=== PATIENT | male | born 1960 | race Caucasian/White ===

== ENCOUNTER 2018-11-18 10:21 | Inpatient (IN) | payer OTHER ==
[~2018-11-18] VITALS: Ht 170.2 cm; Wt 95.3 kg
[2018-11-18] VITALS (21 sets, daily range): BP systolic 114–161; BP diastolic 65–84; PULSE 86–123; RESP 12–23; Ht 170.2 cm; Wt 95.3 kg
[~2018-11-18 10:21] MED LIST: PHENYLephrine (100 MCG/ML) 10ML SYG ONE; SEVOFLURANE 15 MIN ONE
[2018-11-18] MEDS ORDERED: AMLO-147 PO (10:47)
[2018-11-18] MEDS ORDERED: LISI-313 PO (10:48)
[2018-11-18] MEDS ORDERED: CYCL10TA7 PO (10:50)
[2018-11-18] MEDS ORDERED: morphine SULFATE/PF (10 MG/10 ML) INJ ONE (11:52)
[2018-11-18] MEDS ORDERED: PROPOFOL 20 ML ONE (11:52)
[2018-11-18] MEDS ORDERED: CEFAZOLIN 1 GM INJ ONE (11:52)
[2018-11-18] MEDS ORDERED: MIDAZOLAM 1 MG/ML 2 ML INJ ONE (11:52)
[2018-11-18] MEDS ORDERED: ROCURONIUM 50 MG INJ ONE ×2 (11:52→14:03)
--- NOTE | 2018-11-18 11:52 | PREAC ---
Date/Time of Note Date/Time of Note DATE: 11/18/18 TIME: 11:50 Anesthesia Eval and Record Evaluation Time Pre-Procedure Interview DATE: 11/18/18 TIME: 11:50 Age 58 Sex male NPO: 8 hrs Preoperative diagnosis Bilateral Hip OA Planned procedure Right Total Hip Arthroplasty Past Medical History Past Medical History: Includes Cardio: HTN Musculoskeletal: Osteoarthritis GI: Obesity Surgery & Anesthesia Issues No known issue Meds Anticoagulation: No Beta Steve within 24 hr: No Reason Beta Steve not given: Pt. not on B-Steve Reported Medications Cyclobenzaprine Hcl* (Cyclobenzaprine Hcl*) 10 Mg Tablet, 10 MG PO BID PRN for MUSCLE SPASMS, #60 TAB 11/18/18 Lisinopril* (Lisinopril*) 5 Mg Tablet, 5 MG PO DAILY, #30 TAB 11/18/18 Amlodipine Besylate* (Amlodipine Besylate*) 10 Mg Tablet, 10 MG PO DAILY, #30 TAB 11/18/18 Meds reviewed: Yes Allergies Coded Allergies: No Known Allergy (Unverified , 11/18/18) Allergies Reviewed: Yes Labs/Studies Labs Reviewed: Reviewed by anesthesiologist test: N/A Studies: ECG (n/a), CXR (n/a) Pre-procedure Exam Last vitals Vital Signs Date Temp Pulse Resp B/P (MAP) Pulse Ox O2 O2 Flow FiO2 Time Delivery Rate 11/18/18 98.1 123 16 154/78 99 10:30 (103) Airway: Adequate mouth opening, Adequate thyromental dist Mallampati: Mallampati II Teeth: Normal Lung: Normal Heart: Normal ASA Physical Status ASA physical status: 2 Emergency: None Planned Anesthetic General/MAC: ETT, LMA Neuraxial: Spinal Nerve block: Other (Right Fascia Iliaca Block) Planned Pain Management Sub-arachniod narcotics, Single shot nerve block, Parenteral pain med Pre-operative Attestations Prior to commencing anesthesia and surgery, the patient was re-evaluated, there was verification of: *The patient's identity *The results of appropriate recent lab work and preoperative vital signs *The above evaluation not changing prior to induction *Anesthetic plan, risk benefits, alternative and complications discussed with patient/family; questions answered; patient/family understands, accepts and wishes to proceed. MRAK MOJICA MD Nov 18, 2018 11:52
[2018-11-18] MEDS ORDERED: ROPIVACAINE 0.2% 20 ML VIAL ONE (12:04)
[2018-11-18] MEDS ORDERED: POLYMYXIN B 500000 UNIT INJ ONE (12:10)
[2018-11-18] MEDS ORDERED: POLYMYXIN/BACITRACIN 1L IRRIG ONE (12:10)
[2018-11-18] MEDS ORDERED: BACITRACIN 50000 UNITS INJ ONE (13:30)
[2018-11-18] MEDS ORDERED: ONDANSETRON 4 MG INJ ONE (14:03)
[2018-11-18] MEDS ORDERED: KETOROLAC 30 MG INJ ONE (14:03)
[2018-11-18] MEDS ORDERED: DEXAMETHASONE 4 MG/ML 5 ML INJ ONE (14:03)
[2018-11-18] MEDS ORDERED: TRANEXAMIC ACID 1GM/100ML(PMX) 100 ML ONE (14:03)
[2018-11-18] MEDS ORDERED: METOCLOPRAMIDE 10 MG INJ ONE (14:03)
[2018-11-18] MEDS ORDERED: SUGAMMADEX SODIUM 200 MG/2 ML VIAL IV ONE (14:07)
[2018-11-18] MEDS ORDERED: EPHEDrine SULFATE 50 MG/5 ML SYG IV PRN (14:30)
[2018-11-18] MEDS ORDERED: METOCLOPRAMIDE 10 MG INJ IV PRN (14:30)
[2018-11-18] MEDS ORDERED: morphine 2 MG INJ IV PRN ×2 (14:30)
[2018-11-18] MEDS ORDERED: ACETAMINOPHEN 500 MG TAB PO PRN (14:30)
[2018-11-18] MEDS ORDERED: HYDROCODONE/APAP (5/325) TAB PO PRN (14:30)
[2018-11-18] MEDS ORDERED: HYDROmorphONE 1 MG/5 ML IV SYRINGE IV PRN ×3 (14:30)
[2018-11-18] MEDS ORDERED: MEPERIDINE 25 MG INJ IV PRN (14:30)
[2018-11-18] MEDS ORDERED: NALBUPHINE HCL (10 MG/1 ML) INJ IV PRN (14:30)
[2018-11-18] MEDS ORDERED: DIPHENHYDRAMINE 50 MG INJ IV PRN ×2 (14:30)
[2018-11-18] MEDS ORDERED: hydrALAzine 20 MG INJ IV PRN (14:30)
[2018-11-18] MEDS ORDERED: NALOXONE (0.4 MG/ML) INJ IV PRN ×2 (14:30→15:00)
[2018-11-18] MEDS ORDERED: LABETALOL HCL 20MG INJ IV PRN (14:30)
[2018-11-18] MEDS ORDERED: OXYCODONE/ACETAMINOPHEN (5/325) TAB PO PRN ×2 (14:30)
[2018-11-18] MEDS ORDERED: HYDROmorphONE 0.5 MG/0.5 ML SYG IV PRN ×2 (14:30)
[2018-11-18] MEDS ORDERED: FENTAnyl 50 MCG/ML VIAL IV PRN ×3 (14:30)
[2018-11-18] MEDS ORDERED: ONDANSETRON 4 MG INJ IV PRN ×2 (14:30)
--- NOTE | 2018-11-18 14:50 | OPR ---
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
[2018-11-18] MEDS ORDERED: SENNA/DOCUSATE NA (8.6MG/50MG) TAB PO PRN (15:00)
[2018-11-18] MEDS ORDERED: BISACODYL 10 MG SUPP PR PRN (15:00)
[2018-11-18] MEDS ORDERED: DOCUSATE SODIUM 100 MG CAP PO ONE (15:00)
[2018-11-18] MEDS ORDERED: NA PHOSPHATE/BIPHOS 133 ML ENEMA PR PRN (15:00)
[2018-11-18] MEDS ORDERED: MAGNESIUM HYDROXIDE 30ML CUP PO PRN (15:00)
[2018-11-18] MEDS ORDERED: NACL 0.9% 3 ML SYG IV SCH (15:00)
--- NOTE | 2018-11-18 15:01 | PAC ---
Date/Time of Note Date/Time of Note DATE: 11/18/18 TIME: 14:59 Post-Anesthesia Notes Post-Anesthesia Note Last documented vital signs Vital Signs Date Temp Pulse Resp B/P (MAP) Pulse Ox O2 O2 Flow FiO2 Time Delivery Rate 11/18/18 98.7 102 16 120/65 98 room air 14:58 (86) 11/18/18 123 16 154/78 99 10:30 (103) Activity: WNL Respiratory function: WNL Cardiovascular function: WNL Mental status: Baseline Pain reasonably controlled: Yes Hydration appropriate: Yes Nausea/Vomiting absent: Yes MARK MOJICA MD Nov 18, 2018 15:01
--- NOTE | 2018-11-18 18:49 | CONS ---
Assessment/Plan Assessment/Plan Assessment/Plan (Daily) 1. Right hip arthritis status post right total hip replacement Pain control PT DVT prophylaxis per Ortho 2. Hypertension Resume home meds in a.m. Consultation Date/Type/Reason Admit Date/Time Nov 18, 2018 at 10:21 Date/Time of Note DATE: 11/18/18 TIME: 18:47 Hx of Present Illness Patient is a 58-year-old male with a history of hypertension and right hip arthritis. Patient underwent an elective right total hip replacement with no acute complaints at this time. Constitutional: no complaints, improved Eyes: no complaints ENT: no complaints Respiratory: no complaints Cardiovascular: no complaints Gastrointestinal: no complaints Genitourinary: no complaints Musculoskeletal: no complaints Skin: no complaints Neurologic: no complaints Endocrine: no complaints Lymphatic: no complaints Psychological: no complaints, nl mood/affect Immunologic: no complaints Past Medical History Medical History: no pertinent history Home Meds Reported Medications Cyclobenzaprine Hcl* (Cyclobenzaprine Hcl*) 10 Mg Tablet, 10 MG PO BID PRN for MUSCLE SPASMS, #60 TAB 11/18/18 Lisinopril* (Lisinopril*) 5 Mg Tablet, 5 MG PO DAILY, #30 TAB 11/18/18 Amlodipine Besylate* (Amlodipine Besylate*) 10 Mg Tablet, 10 MG PO DAILY, #30 TAB 11/18/18 Medications Current Medications Hydromorphone HCl (Dilaudid) 0.2 mg Q2H PRN IV .PAIN 1-5; Start 11/18/18 at 14:30; Stop 11/19/18 at 12:37 Hydromorphone HCl (Dilaudid) 0.4 mg Q2H PRN IV .PAIN 6-10; Start 11/18/18 at 14:30; Stop 11/19/18 at 12:37 Morphine Sulfate (morphine) 2 mg Q2H PRN IV .PAIN 1-5; Start 11/18/18 at 14:30; Stop 11/19/18 at 12:37 Morphine Sulfate (morphine) 4 mg Q2H PRN IV .PAIN 6-10; Start 11/18/18 at 14:30; Stop 11/19/18 at 12:37 Acetaminophen (Tylenol Tab) 500 mg Q4H PRN PO .PAIN 1-3; Start 11/18/18 at 14:30; Stop 11/19/18 at 12:37 Acetaminophen/ Hydrocodone Bitart ([place] (5/325)) 1 tab Q4H PRN PO .PAIN 4-6; Start 11/18/18 at 14:30; Stop 11/19/18 at 12:37 Diphenhydramine HCl (Benadryl) 25 mg Q4H PRN IV .PRURITUS; Start 11/18/18 at 14:30; Stop 11/19/18 at 12:37 Nalbuphine HCl (Nubain) 10 mg Q4H PRN IV .PRURITUS; Start 11/18/18 at 14:30; Stop 11/19/18 at 12:37 Ondansetron HCl (Zofran Inj) 4 mg Q6H PRN IV .NAUSEA/VOMITING; Start 11/18/18 at 14:30; Stop 11/19/18 at 12:37 Naloxone HCl (Narcan) 0.2 mg Q2M PRN IV .RESP RATE; Start 11/18/18 at 14:30; Stop 11/19/18 at 12:37 Miscellaneous Information (* Miscellaneous Pharmacy Order) DURAMORPH: 0.1 MG SPI... GIVEN NEURAXIAL XX ; Start 11/18/18 at 14:30; Stop 11/19/18 at 12:37 Pantoprazole (Protonix Tab) 40 mg DAILY@06 PO ; Start 11/19/18 at 06:00 Docusate Sodium (Colace) 200 mg BID PO ; Start 11/19/18 at 09:00; Stop 11/21/18 at 21:01 Simethicone (Mylicon) 80 mg TID PRN PO .GAS; Start 11/18/18 at 15:00 Senna/Docusate Sodium (Senokot-S) 2 tab BID PRN PO .CONSTIPATION; Start 11/18/18 at 15:00 Magnesium Hydroxide (Milk Of Mag) 30 ml HS PRN PO .CONSTIPATION; Start 11/18/18 at 15:00 Bisacodyl (Dulcolax Supp) 10 mg DAILY PRN [place] .CONSTIPATION; Start 11/18/18 at 15:00 Sodium Biphosphate/ Sodium Phosphate (Fleet Enema) 133 ml DAILY PRN [place] .CONSTIPATION; Start 11/18/18 at 15:00 Naloxone HCl (Narcan) 0.2 mg Q2M PRN IV .RESP RATE; Start 11/18/18 at 15:00 IV Flush (NS 3 ml) 3 ml per protocol IV ; Start 11/18/18 at 15:00 Allergies: Coded Allergies: No Known Allergy (Unverified , 11/18/18) Family History Significant Family History: no pertinent family hx Social History Smoking Status: Never smoker Drug Use: none Exam/Review of Systems Exam Vitals Vital Signs Date Temp Pulse Resp B/P (MAP) Pulse Ox O2 O2 Flow FiO2 Time Delivery Rate 11/18/18 97.8 18 152/80 97 Nasal 16:30 (104) Cannula 11/18/18 2.0 15:59 11/18/18 90 15:59 Constitutional: alert, oriented Respiratory: clear to auscultation Cardiovascular: regular rate and rhythm Gastrointestinal: soft; No distended Musculoskeletal: nl extremities to inspection Medications Medication Current Medications Hydromorphone HCl (Dilaudid) 0.2 mg Q2H PRN IV .PAIN 1-5; Start 11/18/18 at 14:30; Stop 11/19/18 at 12:37 Hydromorphone HCl (Dilaudid) 0.4 mg Q2H PRN IV .PAIN 6-10; Start 11/18/18 at 14:30; Stop 11/19/18 at 12:37 Morphine Sulfate (morphine) 2 mg Q2H PRN IV .PAIN 1-5; Start 11/18/18 at 14:30; Stop 11/19/18 at 12:37 Morphine Sulfate (morphine) 4 mg Q2H PRN IV .PAIN 6-10; Start 11/18/18 at 14:30; Stop 11/19/18 at 12:37 Acetaminophen (Tylenol Tab) 500 mg Q4H PRN PO .PAIN 1-3; Start 11/18/18 at 14:30; Stop 11/19/18 at 12:37 Acetaminophen/ Hydrocodone Bitart ([place] (5/325)) 1 tab Q4H PRN PO .PAIN 4-6; Start 11/18/18 at 14:30; Stop 11/19/18 at 12:37 Diphenhydramine HCl (Benadryl) 25 mg Q4H PRN IV .PRURITUS; Start 11/18/18 at 14:30; Stop 11/19/18 at 12:37 Nalbuphine HCl (Nubain) 10 mg Q4H PRN IV .PRURITUS; Start 11/18/18 at 14:30; Stop 11/19/18 at 12:37 Ondansetron HCl (Zofran Inj) 4 mg Q6H PRN IV .NAUSEA/VOMITING; Start 11/18/18 at 14:30; Stop 11/19/18 at 12:37 Naloxone HCl (Narcan) 0.2 mg Q2M PRN IV .RESP RATE; Start 11/18/18 at 14:30; Stop 11/19/18 at 12:37 Miscellaneous Information (* Miscellaneous Pharmacy Order) DURAMORPH: 0.1 MG SPI... GIVEN NEURAXIAL XX ; Start 11/18/18 at 14:30; Stop 11/19/18 at 12:37 Pantoprazole (Protonix Tab) 40 mg DAILY@06 PO ; Start 11/19/18 at 06:00 Docusate Sodium (Colace) 200 mg BID PO ; Start 11/19/18 at 09:00; Stop 11/21/18 at 21:01 Simethicone (Mylicon) 80 mg TID PRN PO .GAS; Start 11/18/18 at 15:00 Senna/Docusate Sodium (Senokot-S) 2 tab BID PRN PO .CONSTIPATION; Start 11/18/18 at 15:00 Magnesium Hydroxide (Milk Of Mag) 30 ml HS PRN PO .CONSTIPATION; Start 11/18/18 at 15:00 Bisacodyl (Dulcolax Supp) 10 mg DAILY PRN [place] .CONSTIPATION; Start 11/18/18 at 15:00 Sodium Biphosphate/ Sodium Phosphate (Fleet Enema) 133 ml DAILY PRN [place] .CONSTIPATION; Start 11/18/18 at 15:00 Naloxone HCl (Narcan) 0.2 mg Q2M PRN IV .RESP RATE; Start 11/18/18 at 15:00 IV Flush (NS 3 ml) 3 ml per protocol IV ; Start 11/18/18 at 15:00 ALLA REYES Nov 18, 2018 18:49
--- NOTE | 2018-11-18 23:28 | OPR ---
DATE OF OPERATION: 11/18/2018 SURGEON: Celeste Aviles MD ANESTHESIA: General. PREOPERATIVE DIAGNOSIS: Severe right hip osteoarthritis. POSTOPERATIVE DIAGNOSIS: Severe right hip osteoarthritis. PROCEDURE PERFORMED: Right total hip replacement arthroplasty using [employer] components, siz e 52 shell, high-offset neutral neck, and a 12 mm stem pressfit. ESTIMATED BLOOD LOSS: 200 mL COMPLICATIONS: None. DESCRIPTION OF PROCEDURE: The patient taken to the operating room. General anesthetic with intubati on. Then, 2 grams of Kefzol given for prophylaxis. Tranexamic acid given. The patient carefully po sitioned in the decubitus position, stabilized by the pegboard with an axillary roll, padding off all extremities. Right hip prepped and draped in the usual sterile manner. Posterolateral incision made. Fascia divided. Arthrotomy performed. Hip dislocated. Severe arthri tis was noted. Osteotomy performed on the femoral neck 1 fingerbreadth above the lesser trochanter. Acetabulum was prepared, first reaming down to the teardrop and then to a size 52 mm which was the s ize of the femoral head. Trial reduction was carried out with good fixation and stability. Definiti ve components were brought in. The shell was then placed and two 2.5 mm screws were placed satisfact orily. The articular was then inserted with the lip at the 10 o'clock position. Next, the canal was prepared with a box chisel, canal seeker, lateralizing reamer, straight reaming t o size 12. Broaches were inserted. The 12 broach provided good tight fit. The calcar reamer was us ed. Intraoperative x-ray was taken with the high-offset neutral neck. Reduction was stable. Limb l engths appeared symmetric. X-ray appeared satisfactory. The definitive component was put in and hip reduced with the 12 mm stem, high-offset neutral neck. It was stable. Wound irrigated with an antibiotic solution. Hemostasis ascertained using cautery. A #2 FiberWire u sed to reattach the external rotators through drill holes into the trochanter. The fascia closed wit h #1 Vicryl suture. Subcutaneous layer closed with #1 Vicryl suture. Skin closed with milton. Com pression bandage applied and abduction pillow. Anesthetic reversed. The patient taken to the [facility] ry room in a stable condition. Dictated By: CELESTE SMITH/AYAD Conf#: [id number] DID#: [id number]
[2018-11-19 02:00] VITALS: BP 132/75; PULSE 85; RESP 18
[2018-11-19] MEDS: PANTOPRAZOLE (EC) 40 MG TAB PO SCH (05:39)
[2018-11-19 07:27] VITALS: BP 128/74; PULSE 106; RESP 18
[2018-11-19] MEDS: DOCUSATE SODIUM 100 MG CAP PO SCH ×2 (08:54→21:39)
[2018-11-19] MEDS: AMLODIPINE 10 MG TAB PO SCH (08:54)
[2018-11-19] MEDS: LISINOPRIL 5 MG TAB PO SCH (08:55)
--- NOTE | 2018-11-19 12:41 | PN ---
Date/Time of Note Date/Time of Note DATE: 11/19/18 TIME: 12:38 Assessment/Plan VTE Prophylaxis Risk score (from Nsg)>0 risk: 8 Pharmacological prophylaxis: NA/contraindicated Pharm contraindication: other Lines/Catheters IV Catheter Type (from Nrsg): Saline Lock Assessment/Plan Hospital Course 1. Right hip arthritis status post right total hip replacement postop day #1 Pain control PT DVT prophylaxis per Ortho 2. Hypertension Continue home meds 3. Leukocytosis likely reactive secondary to surgery Monitor DC planning: Anticipate DC home tomorrow Result Diagram: 11/19/18 0437 11/19/18 0436 Results 24hrs Laboratory Tests Test 11/19/18 04:36 11/19/18 04:37 11/19/18 06:43 Prothrombin Time 12.9 Prothrombin Time Ratio 1.0 INR International 0.96 Normalized Ratio Sodium Level 138 Potassium Level 4.6 Chloride Level 104 Carbon Dioxide Level 23 Anion Gap 11 Blood Urea Nitrogen 14 Creatinine 0.84 Est Glomerular Filtrat > 60 Rate mL/min Glucose Level 189 Calcium Level 8.8 White Blood Count 12.8 H Red Blood Count 3.83 L Hemoglobin 11.8 L Hematocrit 36.3 L Mean Corpuscular Volume 94.8 Mean Corpuscular Hemoglobin 30.8 Mean Corpuscular 32.5 Hemoglobin Concent Red Cell Distribution Width 12.6 Platelet Count 256 Mean Platelet Volume 10.6 H Immature Granulocytes % 0.900 H Neutrophils % 87.1 H Lymphocytes % 4.8 L Monocytes % 7.0 Eosinophils % 0.0 Basophils % 0.2 Nucleated Red Blood Cells % 0.0 Immature Granulocytes # 0.120 H Neutrophils # 11.2 H Lymphocytes # 0.6 L Monocytes # 0.9 Eosinophils # 0.0 Basophils # 0.0 Nucleated Red Blood Cells # 0.0 Lab Scanned Report REFERENCE LAB Subjective 24 Hr Interval Summary Constitutional: no complaints Exam/Review of Systems Exam Vitals Vital Signs Date Temp Pulse Resp B/P (MAP) Pulse Ox O2 O2 Flow FiO2 Time Delivery Rate 11/19/18 98.3 106 18 128/74 98 07:27 (92) 11/19/18 Nasal 02:00 Cannula 11/18/18 2.0 20:00 Intake and Output 11/18/18 11/18/18 11/19/18 1515:00 23:00 07:00 IntakeIntake Total 1000 ml 120 ml 1130 ml OutputOutput Total 400 ml 250 ml 800 ml BalanceBalance 600 ml -130 ml 330 ml Constitutional: alert, oriented Respiratory: clear to auscultation Cardiovascular: regular rate and rhythm Gastrointestinal: soft; No distended Musculoskeletal: nl extremities to inspection Results Results 24hrs Laboratory Tests Test 11/19/18 04:36 11/19/18 04:37 11/19/18 06:43 Prothrombin Time 12.9 Prothrombin Time Ratio 1.0 INR International 0.96 Normalized Ratio Sodium Level 138 Potassium Level 4.6 Chloride Level 104 Carbon Dioxide Level 23 Anion Gap 11 Blood Urea Nitrogen 14 Creatinine 0.84 Est Glomerular Filtrat > 60 Rate mL/min Glucose Level 189 Calcium Level 8.8 White Blood Count 12.8 H Red Blood Count 3.83 L Hemoglobin 11.8 L Hematocrit 36.3 L Mean Corpuscular Volume 94.8 Mean Corpuscular Hemoglobin 30.8 Mean Corpuscular 32.5 Hemoglobin Concent Red Cell Distribution Width 12.6 Platelet Count 256 Mean Platelet Volume 10.6 H Immature Granulocytes % 0.900 H Neutrophils % 87.1 H Lymphocytes % 4.8 L Monocytes % 7.0 Eosinophils % 0.0 Basophils % 0.2 Nucleated Red Blood Cells % 0.0 Immature Granulocytes # 0.120 H Neutrophils # 11.2 H Lymphocytes # 0.6 L Monocytes # 0.9 Eosinophils # 0.0 Basophils # 0.0 Nucleated Red Blood Cells # 0.0 Lab Scanned Report REFERENCE LAB Medications Medication Current Medications Pantoprazole (Protonix Tab) 40 mg DAILY@06 PO Last administered on 11/19/18at 05:39; Admin Dose 40 MG; Start 11/19/18 at 06:00 Docusate Sodium (Colace) 200 mg BID PO Last administered on 11/19/18at 08:54; Admin Dose 200 MG; Start 11/19/18 at 09:00; Stop 11/21/18 at 21:01 Simethicone (Mylicon) 80 mg TID PRN PO .GAS; Start 11/18/18 at 15:00 Senna/Docusate Sodium (Senokot-S) 2 tab BID PRN PO .CONSTIPATION; Start 11/18/18 at 15:00 Magnesium Hydroxide (Milk Of Mag) 30 ml HS PRN PO .CONSTIPATION; Start 11/18/18 at 15:00 Bisacodyl (Dulcolax Supp) 10 mg DAILY PRN [place] .CONSTIPATION; Start 11/18/18 at 15:00 Sodium Biphosphate/ Sodium Phosphate (Fleet Enema) 133 ml DAILY PRN [place] .CONSTIPATION; Start 11/18/18 at 15:00 Naloxone HCl (Narcan) 0.2 mg Q2M PRN IV .RESP RATE; Start 11/18/18 at 15:00 IV Flush (NS 3 ml) 3 ml per protocol IV ; Start 11/18/18 at 15:00 Amlodipine Besylate (Norvasc) 10 mg DAILY PO Last administered on 11/19/18at 08:54; Admin Dose 10 MG; Start 11/19/18 at 09:00 Lisinopril (Zestril) 5 mg DAILY PO Last administered on 11/19/18at 08:55; Admin Dose 5 MG; Start 11/19/18 at 09:00 Acetaminophen/ Hydrocodone Bitart ([place] (5/325)) 1 tab Q4H PRN PO MODERATE PAIN LEVEL 4-6; Start 11/19/18 at 11:00 ALLA REYES Nov 19, 2018 12:41
[2018-11-19 13:43] VITALS: BP 117/75; PULSE 105; RESP 18
[2018-11-19] MEDS: HYDROCODONE/APAP (5/325) TAB PO PRN ×2 (15:59→21:43)
[2018-11-19 19:56] VITALS: BP 106/61; PULSE 105; RESP 18
[2018-11-20 01:54] VITALS: BP 125/71; PULSE 91; RESP 18
[2018-11-20] MEDS: HYDROCODONE/APAP (5/325) TAB PO PRN ×3 (04:42→13:09)
[2018-11-20] MEDS: PANTOPRAZOLE (EC) 40 MG TAB PO SCH (05:30)
[2018-11-20 07:29] VITALS: BP 127/77; PULSE 90; RESP 19
[2018-11-20] MEDS: LISINOPRIL 5 MG TAB PO SCH (08:42)
[2018-11-20] MEDS: DOCUSATE SODIUM 100 MG CAP PO SCH (08:42)
[2018-11-20] MEDS: AMLODIPINE 10 MG TAB PO SCH (08:43)
--- NOTE | 2018-11-20 13:34 | PN ---
Date/Time of Note Date/Time of Note DATE: 11/20/18 TIME: 13:33 Assessment/Plan VTE Prophylaxis Risk score (from Ns)>0 risk: 10 SCD applied (from Ns): Yes Pharmacological prophylaxis: NA/contraindicated Pharm contraindication: other Lines/Catheters IV Catheter Type (from Nrs): Saline Lock Assessment/Plan Hospital Course 1. Right hip arthritis status post right total hip replacement postop day #2 Pain control PT DVT prophylaxis per Ortho 2. Hypertension Continue home meds 3. Leukocytosis likely reactive secondary to surgery Monitor DC planning: Anticipate DC home today or tomorrow, DC per Ortho Result Diagram: 11/20/1842611/20/18426 Results 24hrs Laboratory Tests Test 11/20/18 04:27 White Blood Count 10.4 Red Blood Count 3.31 L Hemoglobin 10.3 L Hematocrit 31.0 L Mean Corpuscular Volume 93.7 Mean Corpuscular Hemoglobin 31.1 Mean Corpuscular Hemoglobin Concent 33.2 Red Cell Distribution Width 13.0 Platelet Count 214 Mean Platelet Volume 10.8 H Immature Granulocytes % 0.800 H Neutrophils % 75.0 Lymphocytes % 13.3 L Monocytes % 10.8 Eosinophils % 0.0 Basophils % 0.1 Nucleated Red Blood Cells % 0.0 Immature Granulocytes # 0.080 H Neutrophils # 7.8 H Lymphocytes # 1.4 Monocytes # 1.1 H Eosinophils # 0.0 Basophils # 0.0 Nucleated Red Blood Cells # 0.0 Prothrombin Time 13.1 Prothrombin Time Ratio 1.0 INR International Normalized Ratio 0.98 Sodium Level 140 Potassium Level 3.9 Chloride Level 106 Carbon Dioxide Level 28 Anion Gap 6 Blood Urea Nitrogen 17 Creatinine 0.87 Est Glomerular Filtrat Rate mL/min > 60 Glucose Level 137 # Calcium Level 8.2 L Subjective 24 Hr Interval Summary Constitutional: no complaints Exam/Review of Systems Exam Vitals Vital Signs Date Temp Pulse Resp B/P (MAP) Pulse Ox O2 O2 Flow FiO2 Time Delivery Rate 11/20/18 98.2 90 19 127/77 96 Room Air 07:29 (94) 11/18/18 2.0 20:00 Intake and Output 11/19/18 11/19/18 11/20/18 1414:59 22:59 06:59 IntakeIntake Total 1120 ml OutputOutput Total 300 ml 400 ml 1600 ml BalanceBalance -300 ml 720 ml -1600 ml Constitutional: alert, oriented Respiratory: clear to auscultation Cardiovascular: regular rate and rhythm Gastrointestinal: soft; No distended Musculoskeletal: nl extremities to inspection Results Results 24hrs Laboratory Tests Test 11/20/18 04:27 White Blood Count 10.4 Red Blood Count 3.31 L Hemoglobin 10.3 L Hematocrit 31.0 L Mean Corpuscular Volume 93.7 Mean Corpuscular Hemoglobin 31.1 Mean Corpuscular Hemoglobin Concent 33.2 Red Cell Distribution Width 13.0 Platelet Count 214 Mean Platelet Volume 10.8 H Immature Granulocytes % 0.800 H Neutrophils % 75.0 Lymphocytes % 13.3 L Monocytes % 10.8 Eosinophils % 0.0 Basophils % 0.1 Nucleated Red Blood Cells % 0.0 Immature Granulocytes # 0.080 H Neutrophils # 7.8 H Lymphocytes # 1.4 Monocytes # 1.1 H Eosinophils # 0.0 Basophils # 0.0 Nucleated Red Blood Cells # 0.0 Prothrombin Time 13.1 Prothrombin Time Ratio 1.0 INR International Normalized Ratio 0.98 Sodium Level 140 Potassium Level 3.9 Chloride Level 106 Carbon Dioxide Level 28 Anion Gap 6 Blood Urea Nitrogen 17 Creatinine 0.87 Est Glomerular Filtrat Rate mL/min > 60 Glucose Level 137 # Calcium Level 8.2 L Medications Medication Current Medications Pantoprazole (Protonix Tab) 40 mg DAILY@06 PO Last administered on 11/20/18at 05:30; Admin Dose 40 MG; Start 11/19/18 at 06:00 Docusate Sodium (Colace) 200 mg BID PO Last administered on 11/20/18at 08:42; Admin Dose 200 MG; Start 11/19/18 at 09:00; Stop 11/21/18 at 21:01 Simethicone (Mylicon) 80 mg TID PRN PO .GAS; Start 11/18/18 at 15:00 Senna/Docusate Sodium (Senokot-S) 2 tab BID PRN PO .CONSTIPATION Last administered on 11/20/18at 05:36; Admin Dose 2 TAB; Start 11/18/18 at 15:00 Magnesium Hydroxide (Milk Of Mag) 30 ml HS PRN PO .CONSTIPATION; Start 11/18/18 at 15:00 Bisacodyl (Dulcolax Supp) 10 mg DAILY PRN [place] .CONSTIPATION; Start 11/18/18 at 15:00 Sodium Biphosphate/ Sodium Phosphate (Fleet Enema) 133 ml DAILY PRN [place] .CONSTIPATION; Start 11/18/18 at 15:00 Naloxone HCl (Narcan) 0.2 mg Q2M PRN IV .RESP RATE; Start 11/18/18 at 15:00 IV Flush (NS 3 ml) 3 ml per protocol IV ; Start 11/18/18 at 15:00 Amlodipine Besylate (Norvasc) 10 mg DAILY PO Last administered on 11/20/18at 08:43; Admin Dose 10 MG; Start 11/19/18 at 09:00 Lisinopril (Zestril) 5 mg DAILY PO Last administered on 11/20/18at 08:42; Admin Dose 5 MG; Start 11/19/18 at 09:00 Acetaminophen/ Hydrocodone Bitart ([place] (5/325)) 1 tab Q4H PRN PO MODERATE PAIN LEVEL 4-6 Last administered on 11/20/18at 13:09; Admin Dose 1 TAB; Start 11/19/18 at 11:00 ALLA REYES Nov 20, 2018 13:34
[2018-11-20] MEDS: morphine 2 MG INJ IV PRN ×2 (14:02→18:38)
[2018-11-20 15:07] VITALS: BP 124/79; PULSE 89; RESP 18
--- NOTE | 2018-11-20 15:45 | PDOCDIS ---
Discharge Instructions CONDITION [id number] Patient Condition: [id number] Good HOME CARE INSTRUCTIONS: [id number] Diet Instructions: [id number] Regular ACTIVITY: [id number] Activity Restrictions: [id number] Slowly Increase Activity Rest between Activity Avoid heavy lifting Do not Drive Do not operate Machinery Do not operate Power Tool Avoid Heavy Housework [id number] Bathing Restrictions: [id number] Shower [id number] Activity Restrictions Comment: [id number] waterproof incision area FOLLOW UP/APPOINTMENTS Follow-up Plan FOLLOW UP WITH YOUR PCP AND ORTHO IN 1-2 WEEKS ALLA REYES Nov 20, 2018 15:45
== END 2018-11-20 19:46 | disposition home health service (06) | DRG 470 ==
LOC: REC 10:21 → EDSTATUS 12:00 → MS1 16:00
PROVIDERS: ADMIT Specialist; ATTEND Specialist
PROC: 0SR906A Replacement of Right Hip Joint with Oxidized Zirconium on Polyethylene Synthetic Substitute, Uncemented, Open Approach (ICD-10-PCS; principal; 2018-11-18 12:00)
DX: M16.11 Unilateral primary osteoarthritis, right hip (principal); I10 Essential (primary) hypertension; D72.829 Elevated white blood cell count, unspecified
CPT/HCPCS: 73530; 80048; 85025; 85610; 87086; 88304; 88311; 97116; 97161; 97530; C1713; C1776; J0690; J1100; J1200; J1885; J2250; J2270; J2274; J2370; J2405; J2765; J2795